=== PATIENT | male | born 1960 | race Caucasian/White ===

== ENCOUNTER 2023-11-23 05:01 | Emergency (ER) | payer OTHER, SELFPAY ==
[2023-11-23 05:08] VITALS: BP 146/82
[2023-11-23 05:18] VITALS: BMI 30.7
--- NOTE | 2023-11-23 05:25 | EDRN ---
Pt says he thinks he passed a kidney stone 3 weeks ago, went to his doctor and had a clean urine test so he knows it passed. Pt thinks he has another kidney stone now. Pt adds he hasn't had kidney stones since late . Pt developed R flank
pain around midnight along nausea. No vomiting. Pt dry heaved. No urinary symptoms. Pain wrapped around to abdomen then went back to flank. No fever/chills, cp, sob, abd pain, nausea now.
[2023-11-23 05:35] VITALS: BP 136/85
[2023-11-23 05:37] LABS: Urine Albumin Negative (Neg - Trace); Urine Bilirubin Negative (Negative); Urine Character Clear (Clear); Urine Color Yellow; Urine Glucose Negative (Negative); Urine Ketone Negative (Negative); Urine Leukocyte Negative (Negative); Urine Nitrite Negative (Negative); Urine Occult Blood Trace (Negative); Urine Urobilinogen Negative (Neg - 1+)
[2023-11-23 06:15] LABS: Urine Bacteria Few (Negative); Urine White Cell 0-2 /HPF (0-5)
[2023-11-23] MEDS: NSS 1000 IV (06:45)
[2023-11-23] MEDS: ZOFRAN 4 MG IV (06:46)
[2023-11-23] MEDS: TORADOL 15 MG IV (06:47)
[2023-11-23 06:56] LABS: % Basophils 0.2 % (0-2); % Eosinophils 0.2 % (0-6); % Immature Granulocytes 0.3 % (0-0.5); % Lymphocytes 12.4 % (20.5-51.1); % Monocytes 4.9 % (1.7-9.3); Absolute Immature Granulocytes 0.1 10^3/uL (0-0.05); Absolute Lymphocytes 1.8 10^3/uL (1.2-3.4); Absolute Monocytes 0.7 10^3/uL (0.1-0.6); Absolute Neutrophils 12.2 10^3/uL (1.4-6.5); Hematocrit 41.3 % (39.0-52.0); Hemoglobin 14.3 g/dL (13.0-18.0); Mean Corp Hgb Conc. 34.6 g/dL (33.0-37.0); Mean Corpuscular Hgb 31.6 pg (27.0-31.0); Mean Corpuscular Volume 91.4 fL (80.0-94.0); Mean Platelet Volume 9.8 fL (7.4-10.4); Nucleated Red Blood Cells % 0 % (-); Platelet Count 241 10^3/uL (130-400); Red Blood Cell Count 4.52 10^6/uL (4.70-6.10); White Blood Cell Count 14.8 10^3/uL (4.8-10.8)
[2023-11-23 07:11] LABS: ALT (SGPT) 36 U/L (0-50); AST (SGOT) 34 U/L (17-59); Albumin 4.5 g/dl (3.5-5.0); Alkaline Phosphatase 85 U/L (38-126); Blood Urea Nitrogen 18 mg/dl (9-20); Calcium 9.5 mg/dl (8.4-10.2); Carbon Dioxide 26 mmol/L (22-30); Chloride 106 mmol/L (98-107); Estimated Creatinine Clearance 77 ml/min; Glucose 136 mg/dl (70-99); Potassium 4.5 mmol/L (3.5-5.1); Sodium 140 mmol/L (135-145); Total Bilirubin 0.8 mg/dl (0.2-1.3); Total Protein 7.4 g/dl (6.3-8.2); eGFR > 60.00
--- NOTE | 2023-11-23 07:33 | ED.GENMED ---
History of Present Illness
General
Chief Complaint: Flank Pain
Source: patient and spouse
Exam Limitations: none
Time Seen by Provider: 11/23/23 06:06
Nursing documentation reviewed up to this point in time: agreed with
History of Present Illness
History of Present Illness:
63-year-old male with a past medical history of hypertension, hyperlipidemia, distant history of kidney stones presents to the emergency room with his for evaluation of flank pain. Patient reports that he had an episode of right flank pain
about 6 weeks ago that lasted for a few hours and resolved�he thought it was related to a kidney stone the past. He did not have any recurrence of symptoms until last night when he had acute onset of aching right flank pain once again that has been
constant for the past few hours although intensity waxes and wanes. He says he has had associated nausea and dry heaving. He denies any recent fevers or chills. He has not any dysuria, hematuria, change in urinary frequency. He denies any change
in his bowel movements. He had a kidney stone years ago that felt similar.
Past History
Past History
ED Past Medical History: None
ED Past Surgical History: None
Social History
Tobacco: Non-smoker
Alcohol: None
Drug: None
Personal:
Living: with family
Review of Systems
Review of Systems
All Other Systems: ROS reviewed and negative except as documented in HPI and ROS
Constitutional: Denies fever or chills
Respiratory: Denies trouble breathing
Cardiac: Denies chest pain
ABD/GI: Reports nausea and vomiting; Denies abdominal pain, diarrhea or constipated
: Reports flank pain; Denies dysuria, frequency or bleeding
Musculoskeletal: Denies neck pain or back pain
Neurological: Denies dizzy or headache
Phy Exam
Physical Exam
Physical Exam:
General: Awake, alert, oriented x3; no acute distress
Head: Normocephalic, atraumatic
Eyes: Conjunctiva normal, sclera anicteric
Throat: Airway intact, handling secretions
Neck: Trachea midline, supple without meningismus
Lungs: Breathing comfortably no distress
Heart: Regular rate
Abd: Soft, non distended, nontender
Back: No CVA tenderness
Neuro: No gross deficits
Skin: no rash
Extremities: Warm well-perfused
Scores
Heart Failure Risk
Heart Failure Risk Score: Not Applicable
Heart Score for Chest Pain Patients
STEMI patient?: Not applicable
Withdrawal Assessment of Alcohol
Withdrawal Assessment Completed?: Not applicable
Course
Orders/Labs/Results
Orders:
Orders
11/23/23 05:21
Urinalysis Reflex To Culture Urgent
Date Specimen was Collected: 11/23/23
Time Specimen was Collected: 05:18
Urine Microscopic Reflex Cult Urgent
11/23/23 06:10
CT Abd/pel Without Iv Or Oral Urgent
Comment:
Reason For Exam: right flank pain
11/23/23 06:34
0.9% Sodium Chloride 1000 ml [Nss] 1,000 ml IV BOLUS
Ketorolac [Toradol] 15 mg IV NOW STA
Ondansetron Injectable [Zofran] 4 mg IV NOW STA
11/23/23 06:44
Complete Blood Count/With Diff Urgent
Comprehensive Metabolic Panel Urgent
Abnormal Lab Results
11/23/2324
05:21 06:44
WBC 14.8 H 10^3/uL
(4.8-10.8)
RBC 4.52 L 10^6/uL
(4.70-6.10)
MCH 31.6 H pg
(27.0-31.0)
Abs Immat Gran (auto) 0.1 H 10^3/uL
(0-0.05)
Absolute Neuts (auto) 12.2 H 10^3/uL
(1.4-6.5)
Absolute Monos (auto) 0.7 H 10^3/uL
(0.1-0.6)
Neutrophils % 82.0 H %
(42.2-75.2)
Lymphocytes % 12.4 L %
(20.5-51.1)
Glucose 136 H mg/dl
(70-99)
Ur Occult Blood Reflex Trace A
(Negative)
Urine RBC 7-10 A /HPF
(0-2)
Urine Bacteria (Reflex) Few A
(Negative)
11/23/23 06:44
11/23/23 06:44
Vital Signs
Initial and Last Documented VS:
Initial Vital Signs
Temp Pulse Resp BP Pulse Ox
36.7 C 54 22 146/82 96
11/23/23 05:08 11/23/23 05:08 11/23/23 05:08 11/23/23 05:08 11/23/23 05:08
Last Documented Vital Signs
Temp Pulse Resp BP Pulse Ox
36.7 C 95 16 136/85 95
11/23/23 05:08 11/23/23 05:35 11/23/23 05:35 11/23/23 05:35 11/23/23 05:35
MDM/Problems Addressed
Differential Diagnosis Includes:
Nephrolithiasis, pyelonephritis, cholelithiasis
MDM/Problems Addressed:
63-year-old male with distant history of kidney stones presents with right flank pain similar prior kidney stone. He had a similar episode a few weeks ago that only lasted for few hours, pain returned last night and has been consistent although
waxing and waning intensity since then. Associate with nausea and dry heaving last night. Vital signs here within normal limits. Physical exam as above. Will place an IV check labs including CBC and CMP. Will check urinalysis. Will send for CT
of the abdomen pelvis. Will treat pain and nausea and provide some fluids. Reassess after the above.
Labs reviewed: CBC shows a leukocytosis of 14.8 likely reactive�he has no fever, urinalysis shows no signs of an acute infection. His CMP shows acceptable creatinine of 1.1. His CT of the abdomen pelvis shows obstructive nephrolithiasis 4 mm at
the right UVJ. He does have mild to moderate right hydronephrosis. Clinical reassessment patient appears very well his symptoms are very well-controlled with Toradol and Zofran. I think he is a reasonable candidate for trial of passage. He is
currently receiving IV fluids�will continue to monitor pending completion of fluids if his symptoms remain well-controlled he remains well-appearing will plan likely for discharge with outpatient urology referral, Flomax and symptomatic treatment.
*Radiology
Radiology exam reviewed: radiology read reviewed
*Pulse Oximetry
Patient hypoxic: no
*Critical Care Note
Total Time (30-74mins, 75-104mins- exclusive of procedures): Not Applicable
Data Reviewed
Review of Other/Old Records Reveals: Labs and Records
Source: patient and spouse
ED Attending Note
-
Portions of this chart may have been created with voice recognition software.� Occasional wrong word or��sound alike� substitutions may have occurred due to the inherent limitations of voice recognition software.
Discharge Plan
Departure
Patient with high blood pressure during this ER visit?: Yes
Discharge Problem:
Right nephrolithiasis
Instructions: Renal Colic (DC), How to Strain Your Urine
Prescriptions:
New
tamsulosin [Flomax] 0.4 mg capsule
0.4 mg PO DAILY Qty: 14 0RF
ondansetron 4 mg tablet,disintegrating
4 mg PO TIDPRN PRN (Reason: nausea/vomiting) Qty: 14 0RF
oxycodone 5 mg tablet
5 mg PO BID PRN (Reason: Pain) Qty: 7 0RF
No Action
multivitamin Tablet
1 tab PO DAILY
carvedilol 6.25 mg Tablet
6.25 mg PO BID
valsartan [Diovan] 160 mg Tablet
160 mg PO DAILY
omega 5-umt-dse-fish oil [Fish Oil] 1,200 (144-216) mg Capsule
1 cap PO DAILY
atorvastatin 80 mg Tablet
80 mg PO DAILY
ezetimibe 10 mg Tablet
10 mg PO DAILY
pantoprazole 40 mg Tablet,Delayed Release (Dr/Ec)
40 mg PO DAILY
Referrals:
Denny Alexandra MD [Family Provider] -
Bryan Phan Jr., MD [Active] - Call in 1-3 days for appt
Activity Restrictions/Additional Instructions:
Thank you for visiting the Emergency Department at [facility].
1. Please schedule a follow up appointment as directed. Call first thing tomorrow morning to make an appointment.
2. If indicated, please take your medications as instructed and indicated on discharge paperwork.
3. If any of your symptoms do not improve, or persist, or become more severe within 6-12 hours, please return to the emergency department for further care.
4. Please return to the emergency department if you develop a headache, neck pain/stiffness, fever greater than 100.4F, chest pain, shortness of breath, persistent nausea, vomiting, slurred speech, difficulty walking, numbness/tingling, weakness,
signs of infection or any other symptoms that are worrisome to you.
Please call [phone] if you have any questions.
Interventions
Interventions:
*Risk Screen - Suicide Last Done: 11/23/23 05:08
*General Assessment Last Done: 11/23/23 05:18
*Neglect/Abuse Screening Last Done: 11/23/23 05:08
*ED COVID-19 Vaccine History Last Done: 11/23/23 05:11
NQ-Pifmht-Axbudqmzeu Assessment Last Done: 11/23/23 05:35
ED-Male Genitourinary Assessment Last Done: 11/23/23 05:35
Discharge Date and Time
Print Language: CHINESE
== END 2023-11-23 09:08 | disposition home or self-care (01) ==
LOC: EMR 05:01
PROVIDERS: Emergency Medicine; EMERGENCY PHYSICIAN Emergency Medicine; FAMILY PHYSICIAN Internal Medicine
DX: N13.2 Hydronephrosis with renal and ureteral calculous obstruction (principal); I10 Essential (primary) hypertension; E78.5 Hyperlipidemia, unspecified; Z87.442 Personal history of urinary calculi
CPT/HCPCS: 99284; 96374; 96375; 74176; 80053; 81003; 81015; 85025

== ENCOUNTER → 2025-01-17 13:25 | Outpatient (REF) | payer MEDICARE, OTHER, SELFPAY | LOC: RAD 13:25 | PROVIDERS: ATTENDING PHYSICIAN Surgery; FAMILY PHYSICIAN Internal Medicine | DX: N20.0 Calculus of kidney (principal) | CPT/HCPCS: 74018 ==